=== PATIENT | male | born 1995 | race African-American/Black ===

== ENCOUNTER 2018-01-20 11:30 | Emergency (ER) | payer OTHER, SELFPAY ==
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
== END 2018-01-20 13:55 | disposition home or self-care (01) ==
LOC: ERS 11:30
DX: J20.9 Acute bronchitis, unspecified (principal); I10 Essential (primary) hypertension; F17.210 Nicotine dependence, cigarettes, uncomplicated; Z71.6 Tobacco abuse counseling
CPT/HCPCS: 71046; 99406

== ENCOUNTER 2018-11-11 17:40 | Emergency (ER) | payer SELFPAY | END 2018-11-11 18:46 | disposition left against medical advice (07) | LOC: ERS 17:40 | DX: Z53.21 Procedure and treatment not carried out due to patient leaving prior to being seen by health care provider (principal) ==

== ENCOUNTER 2019-04-16 08:41 | Emergency (ER) | payer SELFPAY ==
[2019-04-16] MEDS ORDERED: Adacel (T-DAP) 0.5 ML SYRINGE ONE (09:06)
[2019-04-16 09:33] LABS: INR-International Normal Ratio 1.1; PTT 27.8 SEC (22.9-36.1); Prothrombin Time 13.8 SEC (12.0-14.7)
[2019-04-16 09:34] LABS: #Eosinphils 0.1 thou/uL (0.0-0.7); #Lymphocytes 1.2 thou/uL (1.20-3.40); #Monocytes 0.4 thou/uL (0.11-0.59); #Neutrophils 4.1 thou/uL (1.40-6.50); %Basophils 0.2 % (0.0-1.0); %Eosinophils 0.9 % (0.0-10.0); %Lymphocytes 20.6 % (21.0-51.0); %Monocytes 6.9 % (0.0-10.0); %Neutrophils 71.4 % (42.0-75.0); Hemoglobin 14.1 g/dL (14.0-18.0); Mean Corpuscular HGB CONC 35.3 g/dL (32.0-36.0); Mean Corpuscular Hemoglobin 30.7 pg (27.0-31.0); Mean Corpuscular Volume 86.9 fL (78.0-98.0); Mean Platelet Volume 7.7 fL (7.4-10.4); Platelet Count 190 thou/uL (130-400); RBC Distribution Width 13.3 % (11.5-14.5); Red Blood Cell (RBC) Count 4.58 mill/uL (4.70-6.10); White Blood Cell (WBC) Count 5.7 thou/uL (4.8-10.8)
[2019-04-16 09:35] LABS: BHCG - Serum Negative; Pregs Control Background? CLEAR/WHITE (CLR/WHITE); Pregs Control Bar Appear? YES (CONTROL BAR)
[2019-04-16] MEDS ORDERED: Lidocaine 1% PF 5 ML VIAL ONE (09:41)
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
[2019-04-16 09:44] LABS: ALT (SGPT) 24 U/L (8-55); AST (SGOT) 38 U/L (5-34); Albumin 4.6 g/dL (3.5-5.0); Alkaline Phosphatase 62 U/L (40-150); Anion Gap 14 mmol/L (10-20); BUN (Urea Nitrogen) 9 mg/dL (8.9-20.6); Bilirubin, Total 0.4 mg/dL (0.2-1.2); CK (CPK) 1098 U/L (30-200); Calc. Creatinine Clearance 0 mL/min (70-130); Calcium 10.1 mg/dL (7.8-10.44); Carbon Dioxide 24 mmol/L (22-29); Chloride 105 mmol/L (98-107); Estimated GFR-MDRD Greater than 90; Globulin 2.3 g/dL (2.4-3.5); Glucose 104 mg/dL (70-105); Lipase 44 U/L (8-78); Potassium 3.8 mmol/L (3.5-5.1); Protein, Total 6.9 g/dL (6.0-8.3); Sodium 139 mmol/L (136-145)
[2019-04-16 09:45] LABS: Acetaminophen Less than 6.0 mcg/mL (10.0-30.0); Alcohol Less than 10 mg/dL (Less than 10); Salicylate Less than 8.0 mg/dL (15.0-30.0)
[2019-04-16] MEDS ORDERED: Bacitracin 1 PK ONE ×2 (09:48→09:50)
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
[2019-04-16] MEDS ORDERED: ISOVUE-370 76%-LOCM 1 ML ONE (12:00)
[2019-04-16] MEDS ORDERED: Ketorolac Tromethamine 30 MG/ML VIAL ONE (12:58)
== END 2019-04-16 13:15 | disposition home or self-care (01) ==
LOC: ERS 08:41
DX: S01.511A Laceration without foreign body of lip, initial encounter (principal); I10 Essential (primary) hypertension; F41.9 Anxiety disorder, unspecified; F32.9 Major depressive disorder, single episode, unspecified; F17.210 Nicotine dependence, cigarettes, uncomplicated; V49.9XXA Car occupant (driver) (passenger) injured in unspecified traffic accident, initial encounter
CPT/HCPCS: 70450; 70486; 71260; 72125; 74177; 80053; 80307; 82550; 83690; 84484; 84703; 85025; 85610; 85730; 90471; 90715; 96361; 96374; J1885; J2001; Q9966

== ENCOUNTER 2020-08-01 08:42 | Emergency (ER) | payer SELFPAY ==
[2020-08-01] MEDS ORDERED: Boostrix 0.5 ML VIAL ONE (08:45)
[2020-08-01 09:05] LABS: #Basophils 0.1 thou/uL (0.0-0.2); #Eosinphils 0.1 thou/uL (0.0-0.7); #Lymphocytes 3.4 thou/uL (1.20-3.40); #Monocytes 0.6 thou/uL (0.11-0.59); %Basophils 0.9 % (0.0-1.0); %Eosinophils 0.6 % (0.0-10.0); %Lymphocytes 36.9 % (21.0-51.0); %Neutrophils 54.6 % (42.0-75.0); Hemoglobin 14.5 g/dL (14.0-18.0); Mean Corpuscular HGB CONC 32.7 g/dL (32.0-36.0); Mean Corpuscular Hemoglobin 27.9 pg (27.0-31.0); Mean Corpuscular Volume 85.3 fL (78.0-98.0); Mean Platelet Volume 7.2 fL (7.4-10.4); Platelet Count 297 thou/uL (130-400); RBC Distribution Width 13.1 % (11.5-14.5); Red Blood Cell (RBC) Count 5.22 mill/uL (4.70-6.10); White Blood Cell (WBC) Count 9.1 thou/uL (4.8-10.8)
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
[2020-08-01] MEDS ORDERED: Lidocaine 1% w/Epinephrine 1:100K 20 ML VIAL ONE (09:25)
[2020-08-01 09:54] LABS: ALT (SGPT) 25 U/L (8-55); AST (SGOT) 26 U/L (5-34); Albumin 4.5 g/dL (3.5-5.0); Alkaline Phosphatase 73 U/L (40-110); Anion Gap 22 mmol/L (10-20); BUN (Urea Nitrogen) 14 mg/dL (8.9-20.6); Bilirubin, Total 0.2 mg/dL (0.2-1.2); Calc. Creatinine Clearance 0 mL/min (70-130); Calcium 9.2 mg/dL (7.8-10.44); Carbon Dioxide 17 mmol/L (22-29); Chloride 102 mmol/L (98-107); Estimated GFR-MDRD 74; Globulin 2.9 g/dL (2.4-3.5); Glucose 117 mg/dL (70-105); Potassium 3.7 mmol/L (3.5-5.1); Protein, Total 7.4 g/dL (6.0-8.3); Sodium 137 mmol/L (136-145)
[2020-08-01] MEDS ORDERED: Bacitracin 1 PK ONE (10:07)
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
[2020-08-01] MEDS ORDERED: Iopamidol-370 76% 500 ML 1 ML ONE (14:09)
== END 2020-08-01 10:59 | disposition home or self-care (01) ==
LOC: ERS 08:42
DX: S31.119A Laceration without foreign body of abdominal wall, unspecified quadrant without penetration into peritoneal cavity, initial encounter (principal); S41.012A Laceration without foreign body of left shoulder, initial encounter; S71.112A Laceration without foreign body, left thigh, initial encounter; S01.412A Laceration without foreign body of left cheek and temporomandibular area, initial encounter; I10 Essential (primary) hypertension; F41.9 Anxiety disorder, unspecified; F31.9 Bipolar disorder, unspecified; F17.210 Nicotine dependence, cigarettes, uncomplicated; W26.0XXA Contact with knife, initial encounter
CPT/HCPCS: 12004; 12011; 36415; 70450; 71045; 71260; 74177; 80053; 85025; 86850; 86900; 86901; 90471; 90715; 94760; 96365; G0390; J0690; Q9967

== ENCOUNTER 2020-08-08 07:14 | Emergency (ER) | payer SELFPAY ==
[2020-08-08] MEDS ORDERED: Bacitracin 1 PK ONE (07:36)
== END 2020-08-08 07:39 | disposition home or self-care (01) ==
LOC: ERS 07:14
DX: S01.81XD Laceration without foreign body of other part of head, subsequent encounter (principal); S71.112D Laceration without foreign body, left thigh, subsequent encounter; S41.012D Laceration without foreign body of left shoulder, subsequent encounter; S31.119D Laceration without foreign body of abdominal wall, unspecified quadrant without penetration into peritoneal cavity, subsequent encounter; I10 Essential (primary) hypertension; F41.9 Anxiety disorder, unspecified; F31.9 Bipolar disorder, unspecified; F20.9 Schizophrenia, unspecified; F17.210 Nicotine dependence, cigarettes, uncomplicated; X58.XXXD Exposure to other specified factors, subsequent encounter

== ENCOUNTER 2020-09-04 01:32 | Emergency (ER) | payer MEDICARE, MEDICAID ==
--- NOTE | 2020-09-04 07:56 | RAD ---
PORTABLE CHEST: HISTORY: Cough. FINDINGS: Lungs appear clear of infiltrate. Heart and mediastinum unremarkable. Vasculature within normal ran ge. IMPRESSION: No acute process identified. POS: [facility]
[2020-09-04 10:55] LABS: SARS-CoV-2 MS2 Positive; SARS-CoV-2 N Gene Positive; SARS-CoV-2 S Gene Positive; SARS-CoV-2 by NAA DETECTED (NotDetected); SARS-CoV-2 orf1ab Positive
== END 2020-09-04 02:20 | disposition home or self-care (01) ==
LOC: ERS 01:32
DX: B34.9 Viral infection, unspecified (principal); I10 Essential (primary) hypertension
CPT/HCPCS: 71045; 87635; U0003

== ENCOUNTER 2021-03-13 03:45 | Emergency (ER) | payer MEDICARE, MEDICAID | END 2021-03-13 04:37 | disposition home or self-care (01) | LOC: ERS 03:45 | DX: L02.416 Cutaneous abscess of left lower limb (principal); L02.415 Cutaneous abscess of right lower limb; I10 Essential (primary) hypertension; F17.210 Nicotine dependence, cigarettes, uncomplicated | CPT/HCPCS: 10061 ==

== ENCOUNTER 2021-03-15 09:17 | Emergency (ER) | payer MEDICARE, MEDICAID | END 2021-03-15 10:08 | disposition home or self-care (01) | LOC: ERS 09:17 | DX: Z48.817 Encounter for surgical aftercare following surgery on the skin and subcutaneous tissue (principal); I10 Essential (primary) hypertension; F17.210 Nicotine dependence, cigarettes, uncomplicated; Z79.899 Other long term (current) drug therapy | CPT/HCPCS: 99282 ==

== ENCOUNTER 2021-06-03 | Emergency (ER) | payer MEDICARE, MEDICAID | END 2021-06-03 15:04 | disposition left against medical advice (07) | DX: Z53.21 Procedure and treatment not carried out due to patient leaving prior to being seen by health care provider (principal) ==

== ENCOUNTER 2021-10-11 19:48 | Emergency (ER) | payer OTHER, MEDICARE, MEDICAID ==
[2021-10-11] MEDS ORDERED: Ketorolac Tromethamine 30 MG/ML VIAL ONE (21:59)
== END 2021-10-11 22:40 | disposition home or self-care (01) ==
LOC: ERS 19:48
DX: S80.01XA Contusion of right knee, initial encounter (principal); W01.0XXA Fall on same level from slipping, tripping and stumbling without subsequent striking against object, initial encounter; I10 Essential (primary) hypertension; F17.210 Nicotine dependence, cigarettes, uncomplicated
CPT/HCPCS: 96372; J1885

== ENCOUNTER 2021-11-20 17:33 | Emergency (ER) | payer MEDICARE, MEDICAID | END 2021-11-20 18:57 | disposition left against medical advice (07) | LOC: ERS 17:33 | DX: Z53.21 Procedure and treatment not carried out due to patient leaving prior to being seen by health care provider (principal) ==

== ENCOUNTER 2021-11-21 16:34 | Emergency (ER) | payer MEDICARE, MEDICAID | END 2021-11-21 18:19 | disposition home or self-care (01) | LOC: ERS 16:34 | DX: S01.311A Laceration without foreign body of right ear, initial encounter (principal); I10 Essential (primary) hypertension; F17.210 Nicotine dependence, cigarettes, uncomplicated; W20.8XXA Other cause of strike by thrown, projected or falling object, initial encounter | CPT/HCPCS: 99282 ==

== ENCOUNTER 2022-03-20 06:23 | Emergency (ER) | payer MEDICARE, MEDICAID | END 2022-03-20 07:08 | disposition home or self-care (01) | LOC: ERS 06:23 | DX: I10 Essential (primary) hypertension (principal); F17.210 Nicotine dependence, cigarettes, uncomplicated | CPT/HCPCS: 93005 ==

== ENCOUNTER 2022-04-06 11:16 | Emergency (ER) | payer MEDICARE, OTHER | END 2022-04-06 13:03 | disposition left against medical advice (07) | LOC: ERS 11:16 | DX: Z53.21 Procedure and treatment not carried out due to patient leaving prior to being seen by health care provider (principal) ==

== ENCOUNTER 2024-09-19 02:23 | Emergency (ER) | payer OTHER | END 2024-09-19 02:58 | disposition home or self-care (01) | LOC: ERS 02:23 | DX: J06.9 Acute upper respiratory infection, unspecified (principal); B97.89 Other viral agents as the cause of diseases classified elsewhere; I10 Essential (primary) hypertension; F17.210 Nicotine dependence, cigarettes, uncomplicated; E66.9 Obesity, unspecified | CPT/HCPCS: 99282 ==